=== PATIENT | female | born 1990 | race Caucasian/White ===

== ENCOUNTER 2018-04-25 20:07 | Emergency (ER) | payer MEDICAID ==
[~2018-04-25] VITALS: Ht 167.6 cm; Wt 65.7 kg
[2018-04-25] MEDS ORDERED: ONDANSETRON ODT 4 MG PO ONE (21:30)
[2018-04-25] MEDS ORDERED: SODIUM CHLORIDE FLUSH 10ML SYR IVF ONE (21:30)
[2018-04-25] MEDS ORDERED: KETOROLAC 30 MG/1 ML IVPush ONE (21:30)
[2018-04-25] MEDS ORDERED: ONDANSETRON ODT 4 MG ONE (21:38)
[2018-04-25] MEDS ORDERED: KETOROLAC 30 MG/1 ML ONE (21:39)
[2018-04-25 21:47] LABS: CULTURE INDICATED? YES; MICROSCOPIC INDICATED
[2018-04-25 22:01] LABS: BASOPHILS # (AUTO) 0.04 x10^3/uL (0-0.1); BASOPHILS % (AUTO) 1 % (0-1); EOSINOPHILS # (AUTO) 0.75 x10^3/uL (0-0.4); EOSINOPHILS % (AUTO) 11 % (1-7); LYMPHOCYTES # (AUTO) 2.53 x10^3/uL (1-3.4); LYMPHOCYTES % (AUTO) 37 % (22-44); MD NO; MEAN CORPUSCULAR HEMOGLOBIN 30.1 pg (27.0-34.8); MEAN CORPUSCULAR HGB CONC 32.8 g/dL (32.4-35.8); MEAN CORPUSCULAR VOLUME 92.1 fL (80-100); MEAN PLATELET VOLUME 10.4 fL (7.4-10.4); MONOCYTES # (AUTO) 0.57 x10^3/uL (0.2-0.8); MONOCYTES % (AUTO) 8 % (2-9); NEUTROPHILS # (AUTO) 2.98 x10^3/uL (1.8-6.8); NEUTROPHILS % (AUTO) 43 % (42-75); PLATELET COUNT 186 x10^3/uL (130-400); RED BLOOD COUNT 4.61 x10^6/uL (3.82-5.3)
[2018-04-25 22:08] LABS: ALBUMIN 3.6 g/dL (3.4-5.0); ANION GAP 8 mmol/L (5-15); CALCIUM 8.7 mg/dL (8.5-10.1); CHLORIDE 111 mmol/L (98-107); CREATININE 0.75 mg/dL (0.55-1.02)
[2018-04-25 23:11] VITALS: BP 90/48
== END 2018-04-25 23:28 | disposition home or self-care (01) ==
LOC: ED 21:58
DX: N20.2 Calculus of kidney with calculus of ureter (principal); R31.9 Hematuria, unspecified; Z87.442 Personal history of urinary calculi; Z88.5 Allergy status to narcotic agent; Z88.6 Allergy status to analgesic agent; Z87.891 Personal history of nicotine dependence
CPT/HCPCS: 36415; 74176; 80048; 81001; 82040; 84703; 85025; 87086; 96374; 99285; J1885; Q0162

== ENCOUNTER 2018-05-13 20:09 | Emergency (ER) | payer MEDICAID ==
[~2018-05-13] VITALS: Ht 167.6 cm; Wt 64.5 kg
[2018-05-13] MEDS ORDERED: SODIUM CHLORIDE FLUSH 10ML SYR IVF ONE (20:30)
[2018-05-13] MEDS ORDERED: MORPHINE SULFATE 4 MG/ML, 1ML IVPush PRN (20:30)
[2018-05-13] MEDS ORDERED: MORPHINE SULFATE 4 MG/ML, 1ML ONE (20:44)
[2018-05-13 21:37] VITALS: BP 114/63
== END 2018-05-13 21:43 | disposition home or self-care (01) ==
LOC: ED 21:35
DX: K64.8 Other hemorrhoids (principal); Z87.891 Personal history of nicotine dependence
CPT/HCPCS: 96374; 99284

== ENCOUNTER 2018-05-24 11:33 | Emergency (ER) | payer MEDICAID ==
[~2018-05-24] VITALS: Ht 167.6 cm; Wt 61.0 kg
[2018-05-24 12:08] VITALS: BP 103/75
[2018-05-24] MEDS ORDERED: HYDROcodone/APAP 5/325 TABLET PO ONE (12:30)
[2018-05-24] MEDS ORDERED: HYDROcodone/APAP 5/325 TABLET ONE (12:34)
== END 2018-05-24 13:41 | disposition home or self-care (01) ==
LOC: ED 12:25
DX: S50.01XA Contusion of right elbow, initial encounter (principal); Z87.891 Personal history of nicotine dependence; Z88.6 Allergy status to analgesic agent; Z88.5 Allergy status to narcotic agent; W10.9XXA Fall (on) (from) unspecified stairs and steps, initial encounter; Y93.89 Activity, other specified; Y92.009 Unspecified place in unspecified non-institutional (private) residence as the place of occurrence of the external cause; Y99.8 Other external cause status
CPT/HCPCS: 99284

== ENCOUNTER 2018-11-06 19:58 | Emergency (ER) | payer MEDICAID ==
[~2018-11-06] VITALS: Ht 167.6 cm; Wt 65.0 kg
--- NOTE | 2018-11-06 20:07 | NUR ---
[id number]
[2018-11-06 20:16] VITALS: BP 108/74
[2018-11-06] MEDS ORDERED: DIAZEPAM 5 MG TABLET PO ONE (21:00)
[2018-11-06] MEDS ORDERED: DIAZEPAM 5 MG TABLET ONE (21:00)
[2018-11-06] MEDS ORDERED: KETOROLAC 30 MG/1 ML IM ONE (21:00)
[2018-11-06] MEDS ORDERED: KETOROLAC 30 MG/1 ML ONE (21:00)
== END 2018-11-06 21:38 | disposition home or self-care (01) ==
LOC: ED 20:25
DX: S16.1XXA Strain of muscle, fascia and tendon at neck level, initial encounter (principal); S29.012A Strain of muscle and tendon of back wall of thorax, initial encounter; Y08.89XA Assault by other specified means, initial encounter; Y93.89 Activity, other specified; Y92.89 Other specified places as the place of occurrence of the external cause; Y99.8 Other external cause status
CPT/HCPCS: 72050; 72072; 73030; 96372; 99283; J1885

== ENCOUNTER 2019-03-15 22:04 | Emergency (ER) | payer MEDICAID ==
[~2019-03-15] VITALS: Ht 167.6 cm; Wt 63.5 kg
[2019-03-16 03:30] VITALS: BP 95/61
== END 2019-03-16 03:32 | disposition home or self-care (01) ==
LOC: ED 23:59
DX: N13.2 Hydronephrosis with renal and ureteral calculous obstruction (principal); Z87.891 Personal history of nicotine dependence; Z88.5 Allergy status to narcotic agent
CPT/HCPCS: 36415; 74176; 80048; 81001; 82040; 84703; 85025; 87086; 96361; 96374; 96375; 99284; J1170; J2405; J7030

== ENCOUNTER 2019-09-12 09:56 | Emergency (ER) | payer MEDICAID ==
[~2019-09-12] VITALS: Ht 167.6 cm; Wt 63.9 kg
[2019-09-12 09:57] VITALS: BP 108/68
[2019-09-12] MEDS ORDERED: ONDANSETRON ODT 4 MG ONE (10:22)
[2019-09-12] MEDS ORDERED: ONDANSETRON ODT 4 MG PO ONE (10:30)
== END 2019-09-12 11:16 | disposition home or self-care (01) ==
LOC: ED 10:54
DX: R11.0 Nausea (principal); B34.9 Viral infection, unspecified; H65.01 Acute serous otitis media, right ear; Z87.891 Personal history of nicotine dependence
CPT/HCPCS: 36415; 84703; 99283; Q0162

== ENCOUNTER 2020-08-15 08:56 | Day surgery (SDC) | payer MEDICAID ==
[~2020-08-15] VITALS: Ht 167.6 cm; Wt 83.7 kg
[2020-08-15] MEDS ORDERED: KETOROLAC 30 MG/1 ML ONE ×2 (09:18→16:24)
[2020-08-15] MEDS ORDERED: ONDANSETRON 2MG/ML, 2ML ONE ×3 (09:19→16:27)
[2020-08-15] MEDS ORDERED: KETOROLAC 30 MG/1 ML IVPush ONE (09:30)
[2020-08-15] MEDS ORDERED: SODIUM CHLORIDE FLUSH 10ML SYR IVF ONE (09:30)
[2020-08-15] MEDS ORDERED: ONDANSETRON 2MG/ML, 2ML IVPush ONE ×2 (09:30→11:00)
--- NOTE | 2020-08-15 09:39 | NUR ---
ULTRASOUND AT BEDSIDE
[2020-08-15 09:49] LABS: BASOPHILS % (AUTO) 1 % (0-1); EOSINOPHILS % (AUTO) 1 % (1-7); LYMPHOCYTES % (AUTO) 27 % (22-44); MD NO; MEAN CORPUSCULAR HGB CONC 33.6 g/dL (32.4-35.8); MEAN PLATELET VOLUME 9.7 fL (7.4-10.4); MONOCYTES % (AUTO) 8 % (2-9); NEUTROPHILS % (AUTO) 63 % (42-75); PLATELET COUNT 175 x10^3/uL (130-400); RED BLOOD COUNT 4.84 x10^6/uL (3.82-5.3); RED CELL DISTRIBUTION WIDTH 13.6 % (9.6-15.2)
[2020-08-15 09:56] LABS: ALANINE AMINOTRANSFERASE 25 U/L (12-78); ALBUMIN 3.6 g/dL (3.4-5.0); ANION GAP 4 mmol/L (5-15); CALCIUM 8.4 mg/dL (8.5-10.1); CHLORIDE 114 mmol/L (98-107)
[2020-08-15 09:59] LABS: ALKALINE PHOSPHATASE 67 U/L (45-117); BILIRUBIN,TOTAL 0.4 mg/dL (0.2-1.0)
[2020-08-15] MEDS ORDERED: DEXTROSE 5% IV ONE (10:00)
[2020-08-15] MEDS ORDERED: SODIUM CHLORIDE 0.9% 1,000ML IVBOLUS ONE (10:00)
[2020-08-15] MEDS ORDERED: LIDOCAINE IV ONE (10:00)
--- NOTE | 2020-08-15 10:05 | NUR ---
PAIN REBOUNDED TO 10/10. AFTER DISCUSSION WITH PROVIDER TO MEDICATE WITH IV LOIDOCAINE PATIENT CARING FOR CHILD AND UNABLE TO RECEIVE NARCOTICS PLACED ON SEED CLEANER AND IV LIDOCAINE ADMINISTERED PER EMAR
--- NOTE | 2020-08-15 10:25 | NUR ---
PAIN COMPLETELY IMPROVED TO 2/10. PATIENT UP WALKING-ABLE TO PRODUCE UA
[2020-08-15] MEDS ORDERED: MORPHINE SULFATE 4 MG/ML, 1ML ONE ×4 (10:41→12:28)
[2020-08-15 10:44] LABS: MICROSCOPIC INDICATED
[2020-08-15] MEDS: MORPHINE SULFATE 4 MG/ML, 1ML IVPush PRN ×2 (10:45→11:24)
--- NOTE | 2020-08-15 10:46 | NUR ---
PAIN AGAIN REBOUNDED TO 10/10. CCOO FOUND-MEDICATED PER EMAR FOR PAIN/NAUSEA
--- NOTE | 2020-08-15 11:25 | NUR ---
PAIN AGAIN REBOUNDED TO 10/10. MEDICATED AGAIN
[2020-08-15 11:36] LABS: HCG UR SG 1.022 (1.003-1.030)
[2020-08-15] MEDS ORDERED: MORPHINE SULFATE 4 MG/ML, 1ML IVPush ONE ×2 (12:00→12:30)
--- NOTE | 2020-08-15 12:18 | NUR ---
PAIN AGAIN REBOUNDED TO 8. MEDICATED AGAIN per emar Updated on estimated poc (awaiting urology return call for reccomendations)
--- NOTE | 2020-08-15 12:39 | NUR ---
PAIN AGAIN REBOUNDED TO 8/10. MEDICATED AGAIN per emar straight cath ua obtained-walked to lab
[2020-08-15 12:53] LABS: MICROSCOPIC INDICATED
--- NOTE | 2020-08-15 13:10 | NUR ---
With reassessment pain free (0/10). Able to fall fast asleep Updated on estimated poc (awaiting ua micro results)
[2020-08-15] MEDS ORDERED: CEFTRIAXONE PMX 1GM/50ML 50 ML IV ONE (13:30)
[2020-08-15] MEDS ORDERED: CEFTRIAXONE PMX 1GM/50ML 50 ML ONE (13:56)
--- NOTE | 2020-08-15 13:56 | NUR ---
PROVIDER TO BEDSIDE: PLAN TO TREAT UTI WITH ANTIBIOTICS. [facility] CLARIFIED NEED FOR BLOOD CULTURES. PROVIDER REPORTS "SHE NOT SEPTIC SHE DOESN'T NEED CULTURES." ALSO TO START MIVF AND PLAN FOR URETHRAL STENT REPORT TO ATYLOR CARMEN
--- NOTE | 2020-08-15 14:14 | NUR ---
ASSUMED CARE FROM NELLA SILVER. PT RESTING IN [place] AT THIS TIME, WCTM, PER PT NO NEEDS AT THIS TIME. PT TEARFUL ABOUT HAVING TO STAY, EDUCATED PT ON IMPORTANCE OF FOLLOWING DR RECOMMENDATION AT THIS TIME, PT AGREES TO STAY AND GET TREATED.
[2020-08-15] MEDS ORDERED: CHLORHEXIDINE 15 ML UDC ONE (14:43)
--- NOTE | 2020-08-15 14:44 | NUR ---
REPORT GIVEN TO NELLA GUZMÁN IN PREOP. OR TECH HERE TO TRANSFER PT VIA [facility].
[2020-08-15] MEDS ORDERED: CHLORHEXIDINE 15 ML UDC MM STA (14:45)
[2020-08-15] MEDS ORDERED: FENTANYL PF 100 MCG/2ML ONE (14:55)
[2020-08-15] MEDS ORDERED: hydrALAzine 20 MG/ML, 1ML IV PRN (15:00)
[2020-08-15] MEDS ORDERED: DOCUSATE 100 MG CAPSULE PO PRN (15:00)
[2020-08-15] MEDS ORDERED: HALOPERIDOL 5 MG/ML IV PRN (15:00)
[2020-08-15] MEDS ORDERED: HYDROmorphone 1 MG/ML, 1ML INJ IVPush PRN (15:00)
[2020-08-15] MEDS ORDERED: POLYETHYLENE GLYCOL 17 GM PACKET PO PRN (15:00)
[2020-08-15] MEDS ORDERED: ONDANSETRON 2MG/ML, 2ML IVPush PRN (15:00)
[2020-08-15] MEDS ORDERED: LORazepam 2 MG/ML, 1ML IVPush PRN (15:00)
[2020-08-15] MEDS ORDERED: LABETALOL 5MG/ML, 20ML IV PRN (15:00)
[2020-08-15] MEDS ORDERED: DIPHENHYDRAMINE 50 MG/ML, 1ML IVPush PRN (15:00)
[2020-08-15] MEDS ORDERED: hydrALAzine 20 MG/ML, 1ML IVPush PRN (15:00)
[2020-08-15] MEDS ORDERED: LACTATED RINGERS 1,000 ML IV SCH (15:00)
[2020-08-15] MEDS ORDERED: HYDROmorphone 2 MG/ML, 1ML IVPush PRN (15:00)
[2020-08-15] MEDS ORDERED: FENTANYL PF 100 MCG/2ML IV PRN (15:00)
[2020-08-15] MEDS ORDERED: MEPERIDINE/PF 25MG/0.5ML IVPush PRN (15:00)
[2020-08-15] MEDS ORDERED: OXYcodone 5 MG/5 ML ORAL.SOL UDC PO PRN (15:00)
[2020-08-15] MEDS ORDERED: PROMETHAZINE 25 MG/ML, 1ML IVPush PRN (15:00)
[2020-08-15] MEDS ORDERED: MIDAZOLAM 1 MG/ML, 2ML ONE (15:01)
[2020-08-15 15:18] LABS: BASOPHILS % (AUTO) 0 % (0-1); EOSINOPHILS % (AUTO) 0 % (1-7); LYMPHOCYTES % (AUTO) 18 % (22-44); MEAN CORPUSCULAR HEMOGLOBIN 31.1 pg (27.0-34.8); MEAN CORPUSCULAR HGB CONC 33.1 g/dL (32.4-35.8); MEAN PLATELET VOLUME 9.3 fL (7.4-10.4); MONOCYTES % (AUTO) 10 % (2-9); NEUTROPHILS % (AUTO) 72 % (42-75); PLATELET COUNT 157 x10^3/uL (130-400); RED BLOOD COUNT 4.44 x10^6/uL (3.82-5.3)
[2020-08-15 15:23] LABS: MD NO
[2020-08-15] MEDS ORDERED: ROCURONIUM 10MG/ML,5ML ONE (16:27)
[2020-08-15] MEDS ORDERED: DEXAMETHASONE 4 MG/ML, 1ML ONE (16:27)
[2020-08-15] MEDS ORDERED: PROPOFOL 10 MG/ML, 20ML ONE (16:27)
[2020-08-15] MEDS ORDERED: GLYCOPYRROLATE 0.2MG/1ML, 5ML ONE (16:27)
[2020-08-15] MEDS ORDERED: NEOSTIGMINE 1 MG/ML, 10ML ONE (16:27)
[2020-08-15] MEDS ORDERED: SUCCINYLCHOLINE 20 MG/ML, 10ML ONE (16:27)
[2020-08-15] MEDS ORDERED: CEFAZOLIN 1,000 MG ONE (16:27)
[2020-08-15] MEDS ORDERED: PROMETHAZINE 25 MG/ML, 1ML ONE (16:50)
[2020-08-15 19:24] VITALS: BP 108/75
[2020-08-15 19:28] VITALS: BP 108/75
[2020-08-16] MEDS ORDERED: CEFTRIAXONE 2 GM in DEXTROSE 5% 50 ML IV SCH (14:00)
== END 2020-08-15 20:20 | disposition home or self-care (01) ==
LOC: EDSTATUS 09:15 → ED 10:25 → OUT 13:49 → EDIP 13:49 → UNDOADMIN 13:49 → 4NE 17:37 → EDIP 17:37 → OUT 20:20 → UNDODISIN 20:20
PROVIDERS: ATTEND Emergency Medicine
DX: N13.2 Hydronephrosis with renal and ureteral calculous obstruction (principal); N30.80 Other cystitis without hematuria; F17.210 Nicotine dependence, cigarettes, uncomplicated; Z20.822 Contact with and (suspected) exposure to COVID-19; Z53.29 Procedure and treatment not carried out because of patient's decision for other reasons; Z79.899 Other long term (current) drug therapy; Z87.442 Personal history of urinary calculi; Z88.5 Allergy status to narcotic agent; Z88.8 Allergy status to other drugs, medicaments and biological substances; Z84.1 Family history of disorders of kidney and ureter; Z82.49 Family history of ischemic heart disease and other diseases of the circulatory system
CPT/HCPCS: 36415; 52332; 52352; 74018; 74176; 76770; 80053; 81001; 81025; 82360; 85025; 87077; 87086; 87186; 87635; 88300; 96361; 96374; 96375; 99285; C1769; C2617; J0330; J0690; J0696; J1100; J1885; J2250; J2270; J2405; J2550; J2704; J3010; J7030; 74420; 76000; G0378; J2710